=== PATIENT | female | born 1975 | race Caucasian/White ===

== ENCOUNTER 2024-04-01 11:00 | Inpatient (IN) | payer OTHER ==
[2024-06-02 09:43] VITALS: BMI 28.5
[2024-06-03] MEDS ORDERED: THROMBIN (BOVINE) 5,000 UNIT VIAL TP ONE (07:07)
[2024-06-03] MEDS ORDERED: GENTAMICIN SO4 80 MG/2 ML VIAL ONE (07:07)
[2024-06-03] MEDS ORDERED: LIDOCAINE 1%/EPI 1:100000 (20 ML MULTI DOSE VIAL) ONE (07:07)
[2024-06-03] MEDS ORDERED: ACETAMINOPHEN INJECTION 100 ML IVPB ONE ×2 (07:22→13:15)
[2024-06-03] MEDS: ceFAZolin SODIUM 1 GM VIAL IVPB ONE ×2 (07:27→12:30)
[2024-06-03] MEDS: VANCOMYCIN 1 GM in D5W (PRE-DOCKED) 1,000 MG/250 ML (RESTRICTED TO ID ONLY IVPB ONE ×2 (07:28→12:30)
[2024-06-03] MEDS ORDERED: ROCURONIUM BROMIDE 50 MG/5 ML SYRINGE ONE ×2 (07:29→12:12)
[2024-06-03] MEDS: THROMBIN (BOVINE) 5,000 UNIT VIAL TP ONE ×2 (07:29→13:08)
[2024-06-03] MEDS: LIDOCAINE 1%/EPI 1:100000 (20 ML MULTI DOSE VIAL) IJ ONE ×2 (07:29→12:35)
[2024-06-03] MEDS ORDERED: LIDOCAINE HCL/PF 2% SDV 5ML VIAL ONE (07:29)
[2024-06-03] MEDS ORDERED: ONDANSETRON 4 MG/2 ML VIAL ONE (07:29)
[2024-06-03] MEDS ORDERED: DEXAMETHASONE SOD PHOSPHATE 4 MG/1 ML VIAL ONE ×3 (07:29→12:42)
[2024-06-03] MEDS ORDERED: PROPOFOL 20 ML ONE ×2 (07:29→12:12)
[2024-06-03] MEDS ORDERED: ceFAZolin SODIUM 1 GM VIAL ONE (07:29)
[2024-06-03] MEDS: GENTAMICIN SO4 80 MG/2 ML VIAL IVPB ONE ×2 (07:30→13:08)
[2024-06-03] MEDS ORDERED: MIDAZOLAM HCL 2 MG/2 ML SINGLE DOSE VIAL ONE (12:12)
[2024-06-03] MEDS ORDERED: PROPOFOL 40 ML ONE (12:27)
[2024-06-03] MEDS ORDERED: HYDROmorphone HCl 2 MG/ML VIAL ONE (12:51)
[2024-06-03] MEDS ORDERED: SUGAMMADEX SODIUM 200 MG/2 ML VIAL ONE (12:58)
[2024-06-03] MEDS: HYDROGEN PEROXIDE 473 ML PO ONE (13:08)
[2024-06-03] MEDS ORDERED: ONDANSETRON 4 MG/2 ML VIAL IVPUSH PRN ×2 (14:22→14:26)
[2024-06-03] MEDS: SODIUM CHLORIDE 1,000 ML IV SCH (15:06)
[2024-06-03] MEDS ORDERED: morphine SULFATE 4 MG/ML VIAL ONE (15:18)
[2024-06-03] MEDS: morphine SULFATE 4 MG/ML VIAL IVPUSH PRN (15:20)
[2024-06-03] MEDS: oxyCODONE HCL 5 MG TABLET PO PRN ×2 (16:41→23:22)
[2024-06-03 17:08] VITALS: RESP 18
[2024-06-03] MEDS: INSULIN ASPART SLIDING SCALE (NOVOLOG) 1 VIAL SQ SCH (17:22)
[2024-06-03] MEDS: RESMETIROM PO SCH (17:43)
[2024-06-03] MEDS: LACTATED RINGERS SOLUTION 1,000 ML/1,000 ML INFUS.BAG IV SCH (17:47)
[2024-06-03] MEDS: LACTATED RINGERS SOLUTION 1,000 ML IV SCH (17:47)
[2024-06-03] MEDS: ACETAMINOPHEN 1000 MG/100 ML BAG IVPB SCH (19:37)
[2024-06-03] MEDS: CEFAZOLIN 1 GM in DEXTROSE 5%-WATER - 50 ML IVPB SCH (21:28)
[2024-06-03] MEDS: ROSUVASTATIN CA 5 MG TABLET PO SCH (21:28)
[2024-06-03] MEDS: MAGNESIUM OXIDE 400 MG TABLET (FP) PO SCH (21:28)
[2024-06-03] MEDS: DOCUSATE SODIUM 100 MG CAPSULE (FP) PO SCH (21:28)
[2024-06-03] MEDS: HEPARIN NA (PORCINE) 5,000 UNITS/ML 1ML VIAL SQ SCH (21:29)
[2024-06-04] MEDS: MELATONIN 5 MG TABLETS PO ONE (02:49)
[2024-06-04] MEDS: oxyCODONE HCL 5 MG TABLET PO PRN (03:01)
[2024-06-04 07:02] VITALS: TEMP 97.3
[2024-06-04 08:28] LABS: HEMATOCRIT 33.3 % (32.4-45.2); HEMOGLOBIN 11.1 GM/dL (10.7-15.3); MCH 32.2 pg (25.7-33.7); MCHC 33.2 g/dl (32.0-36.0); MEAN CELL VOLUME 96.8 fl (80-96); MEAN PLT VOLUME 10.3 fl (7.5-11.1); PLATELET COUNT 179 10^3/uL (134-434); RBC 3.44 M/mm3 (3.60-5.2); RDW 12.4 % (11.6-15.6); WHITE BLOOD COUNT 10.1 K/mm3 (4.0-10.0)
[2024-06-04 09:27] LABS: POTASSIUM 4.6 mmol/L (3.5-5.1)
[2024-06-04 09:28] LABS: CALCIUM 9.2 mg/dL (8.5-10.1)
[2024-06-04 09:29] LABS: BLOOD UREA NITROGEN 10.8 mg/dL (7-18)
[2024-06-04 09:31] LABS: CREATININE 0.6 mg/dL (0.55-1.3)
[2024-06-04] MEDS: HYDROCHLOROTHIAZIDE 25 MG TABLET (FP) PO SCH (09:55)
[2024-06-04] MEDS: PANTOPRAZOLE 20 MG TABLET PO SCH (09:55)
[2024-06-04] MEDS ORDERED: LECITHIN 1200 MG PO SCH (10:00)
[2024-06-04 12:04] VITALS: BP 122/73; PULSE 85
[2024-06-04] MEDS: LINZESS 290 MCG PO SCH (12:43)
[2024-06-04] MEDS ORDERED: ACETAMINOPHEN 500 MG TABLET (FP) PO SCH (14:00)
[2024-06-04] MEDS: PNEUMOC 20-VAL CONJ-DIP CRM/PF 0.5 ML SYRINGE IM ONE (14:29)
== END 2024-06-04 14:49 | disposition home or self-care (01) | DRG 321 ==
LOC: J2C 06-03 04:04 → J8W 06-03 16:29
PROVIDERS: ADMIT Neurological Surgery; ATTEND Family Medicine
PROC: 0PB30ZZ Excision of Cervical Vertebra, Open Approach (ICD-10-PCS; 2024-06-03)
PROC: 00NW0ZZ Release Cervical Spinal Cord, Open Approach (ICD-10-PCS; 2024-06-03)
PROC: 4A1004G Monitoring of Central Nervous Electrical Activity, Intraoperative, Open Approach (ICD-10-PCS; 2024-06-03)
PROC: 0RG20A0 Fusion of 2 or more Cervical Vertebral Joints with Interbody Fusion Device, Anterior Approach, Anterior Column, Open Approach (ICD-10-PCS; principal; 2024-06-03 08:00)
DX: M47.12 Other spondylosis with myelopathy, cervical region (principal); I10 Essential (primary) hypertension; E11.9 Type 2 diabetes mellitus without complications; F17.210 Nicotine dependence, cigarettes, uncomplicated
CPT/HCPCS: 36415; 72125-TC; 76000-TC-FY; 80048; 82962; 85027; 86900; 86922; 94760; 97116-GP; 97161-GP; C1713; J0131; J1644